=== PATIENT | female | born 1960 | race Hispanic/Latino ===

== ENCOUNTER → 2022-04-04 | Outpatient (CLI) | payer BC ==
[~2022-04-04] MED LIST: ACTOS15 MG PO; BUSPIRONE HCL5 MG PO; EVOXAC30 MG PO; FLUOXETINE HCL40 MG PO; LISINOPRIL2.5 MG PO; METFORMIN HCL500 M2 PO
== END ==
LOC: US 14:26
PROVIDERS: ATTEND Internal Medicine Endocrinology, Diabetes & Metabolism
DX: E11.9 Type 2 diabetes mellitus without complications (principal); E04.2 Nontoxic multinodular goiter
CPT/HCPCS: 76536